=== PATIENT | male | born 1955 | race Asian ===

== ENCOUNTER 2025-05-13 10:11 | Emergency (ER) | payer OTHER, SELFPAY ==
[2025-05-13 10:25] VITALS: BP 122/60
--- NOTE | 2025-05-13 11:19 | ED.GENMED ---
History of Present Illness
General
Chief Complaint: Back Pain
Time Seen by Provider: 05/13/25 11:08
History of Present Illness
History of Present Illness:
69-year-old male presents the emergency department for evaluation of low back pain radiating down the left leg for the past week. He reached for something and felt acute pain. The pain waxes and wanes but seems to be more severe when he is
attempting to stand from a seated position. Denies any paresthesias to the leg. Pain radiates to the calf area. No loss of urinary continence or saddle anesthesias. Has been taking ibuprofen religiously without relief. Does a history of CAD
status post CABG as well as ryn-fzdacct-rwheiiwps diabetes
Review of Systems
Review of Systems
Allergies reviewed?: Yes
All Other Systems: ROS reviewed and negative except as documented in HPI and ROS
Phy Exam
Physical Exam
Physical Exam:
GEN: Well appearing, NAD, WDWN
HEENT: Oral mucosa moist, no scleral icterus
Cardiac: Regular rate
Lung: No respiratory distress, no tachypnea
MSK: No gross deformity or injuries. Diffusely tender in the bilateral paraspinous musculature in the lumbar region. Lumbar range of motion is normal however pain is elicited throughout. Bilateral hip and leg range of motion normal in all bryson
however pain is elicited with external rotation of the left hip. Straight leg raise positive.
Skin: Good color, no pallor or jaundice, no rashes
Neuro: AO x3, moves all extremities freely, sensation intact to lower extremities bilaterally, patellar reflexes 1+ bilaterally
Psych: Calm, cooperative
Course
Orders/Labs/Results
Orders:
Orders
05/13/25 11:18
Prednisone [Deltasone] 60 mg PO NOW STA
Vital Signs
Initial and Last Documented VS:
Initial Vital Signs
Temp Pulse Resp BP Pulse Ox
97.7 F 51 16 122/60 100
05/13/25 10:25 05/13/25 10:05/13/25 10:25 05/13/25 10:05/13/25 10:25
Last Documented Vital Signs
Temp Pulse Resp BP Pulse Ox
97.7 F 51 16 122/60 100
05/13/25 10:25 05/13/25 10:25 05/13/25 10:25 05/13/25 10:05/13/25 11:20
MDM/Problems Addressed
MDM/Problems Addressed:
Most likely lumbar disc herniation given the radicular symptoms. Given that he been failing NSAIDs we discussed potential benefit of high-dose NSAIDs versus steroid taper. Given that the patient has a history of significant CAD we will avoid
further NSAIDs for the time being and trial a course of steroids although he is counseled this may cause blood sugar elevations. Recommend outpatient primary care follow-up to consider MRI. Lack of trauma is reassuring thus no need for x-rays at
this time. No clinical signs of critical spinal cord compression
*Pulse Oximetry
SaO2: 100
Oxygen Mode of Delivery: Room air
Patient hypoxic: no
*Critical Care Note
Total Time (30-74mins, 75-104mins- exclusive of procedures): Not Applicable
ED Attending Note
-
Portions of this chart may have been created with voice recognition software.� Occasional wrong word or��sound alike� substitutions may have occurred due to the inherent limitations of voice recognition software.
Discharge Plan
Departure
Patient Disposition: Home (Routine Discharge)
Date of Disposition: 05/13/25
Time of Disposition: 11:20
Patient with high blood pressure during this ER visit?: No
Discharge Problem:
Lumbar radiculopathy
Instructions: Radiculopathy (DC)
Prescriptions:
New
prednisone 10 mg tablet
10 mg PO DIRECTED Qty: 43 0RF
Rx Instructions:
Once daily as follows: 60, 60, 50, 50, 40, 40, 30, 30, 20, 20, 10, 10
methocarbamol 500 mg tablet
500 mg PO TID Qty: 15 0RF
No Action
aspirin 81 MG tablet,delayed release (DR/EC)
81 mg PO DAILY
bisoprolol-hydrochlorothiazide 1 EACH tablet
1 tab PO DAILY
tamsulosin [Flomax] 0.4 MG capsule
0.4 mg PO QPM
dutasteride 0.5 MG capsule
0.5 mg PO QPM
amlodipine 2.5 MG tablet
2.5 mg PO DAILY Qty: 1 0RF
metformin 1,000 MG tablet
1,000 mg PO BID Qty: 0 0RF
Rx Instructions:
Resume on Tuesday 5/ am
atorvastatin 40 MG tablet
80 mg PO QPM Qty: 1 0RF
Referrals:
GWEN LLANOS [Other]
Activity Restrictions/Additional Instructions:
Follow-up with your primary doctor in 1 to 2 weeks if symptoms persist
You may need an MRI if your pain is not improved with steroids
Monitor your blood sugars while on steroids as they can temporarily increase
Interventions
Interventions:
*Risk Screen - Suicide Last Done: 05/13/25 10:20
*General Assessment Last Done: 05/13/25 10:20
*Nursing Disposition Last Done: 05/13/25 11:35
ED-Musculoskeletal Assessment Last Done: 05/13/25 11:34
Discharge Date and Time
Discharge Date/Time: 05/13/25 11:35
Print Language: PALESTINIAN
[2025-05-13] MEDS: DELTASONE 60 MG PO (11:29)
== END 2025-05-13 11:35 | disposition home or self-care (01) ==
LOC: EMR 10:11
PROVIDERS: EMERGENCY PHYSICIAN Emergency Medicine
DX: M54.16 Radiculopathy, lumbar region (principal); I25.10 Atherosclerotic heart disease of native coronary artery without angina pectoris; E11.9 Type 2 diabetes mellitus without complications; Z95.1 Presence of aortocoronary bypass graft
CPT/HCPCS: 99282